=== PATIENT | male | born 1990 | race Caucasian/White ===

== ENCOUNTER 2023-05-01 22:50 | Emergency (ER) | payer BC, OTHER ==
[2023-05-01 23:29] LABS: BASOPHILS ABSOLUTE AUTO 0.05 K/mm3 (0.01-0.08); BASOPHILS PERCENT AUTO 0.5 % (0.1-1.2); EOSINOPHILS ABSOLUTE AUTO 0.32 K/mm3 (0.04-0.54); EOSINOPHILS PERCENT AUTO 3.2 (0.8-7.0); HEMATOCRIT 43.1 % (40.1-51.0); IMMATURE GRAN ABSOLUTE AUTO 0.01 K/mm3 (0.00-0.10); IMMATURE GRAN PERCENT AUTO 0.1 % (<=1.0); LYMPHOCYTES ABSOLUTE AUTO 3.17 K/mm3 (1.32-3.57); LYMPHOCYTES PERCENT AUTO 31.9 % (21.8-53.1); MEAN CORPUSCULAR HGB CONC 34.8 g/dl (32.2-35.5); MEAN CORPUSCULAR VOLUME 86.2 fl (79.0-92.2); MONOCYTES ABSOLUTE AUTO 0.86 K/mm3 (0.30-0.82); MONOCYTES PERCENT AUTO 8.7 % (5.3-12.2); NEUTROPHILS ABSOLUTE AUTO 5.52 K/mm3 (1.78-5.38); NEUTROPHILS PERCENT AUTO 55.6 % (34.0-67.9); PLATELET COUNT,PLT 394 K/mm3 (163-337); WHITE BLOOD CELL COUNT,WBC 9.93 K/mm3 (4.23-9.07)
[2023-05-01 23:52] LABS: A/G RATIO 1.2 (1-2); ALANINE AMINOTRANSFERASE,ALT 68 U/L (16-63); ALBUMIN 4.1 g/dl (3.4-5.0); ALKALINE PHOSPHATASE 67 U/L (46-116); ANION GAP 14.1 (5-15); ASPARTATE AMNIOTRANSFERASE,AST 24 U/L (15-37); BILIRUBIN TOTAL 0.2 mg/dL (0.2-1.0); BLOOD UREA NITROGEN,BUN 18 mg/dL (7-18); CALCIUM 9.2 mg/dL (8.5-10.1); CARBON DIOXIDE,CO2 27 mEq/L (21-32); CHLORIDE,CL 105 mEq/L (98-107); CREATININE 0.9 mg/dL (0.7-1.3); EST CRCL DRUG DOSING (CG) 138.27 mL/min; ESTIMATED GFR 117 mL/min (>60); GLUCOSE RANDOM 89 mg/dL (70-99); POTASSIUM,K 4.1 mEq/L (3.5-5.1); PROTEIN TOTAL,TP 7.6 g/dl (6.4-8.2); SODIUM,NA 142 mEq/L (136-145)
[2023-05-01 23:53] LABS: TROPONIN I HIGH SENSITIVITY < 4 pg/mL (<=76)
[2023-05-02 00:24] VITALS: BP 118/55; PULSE 70
== END 2023-05-02 00:15 | disposition home or self-care (01) ==
LOC: JD.ED 22:50
DX: R06.00 Dyspnea, unspecified (principal); E66.9 Obesity, unspecified; Z88.8 Allergy status to other drugs, medicaments and biological substances; Z91.041 Radiographic dye allergy status; Z88.1 Allergy status to other antibiotic agents; Z68.39 Body mass index [BMI] 39.0-39.9, adult
CPT/HCPCS: 36415; 71045; 71045-26; 80053; 84484; 85025; 85379; 93005; 93010; 99283; 99284